=== PATIENT | male | born 1965 | race Caucasian/White ===

== ENCOUNTER 2021-01-08 02:42 | Inpatient (IN) | payer OTHER, SELFPAY ==
--- NOTE | 2021-01-08 01:49 | NURSING ---
This RN received phone call from patients stating [facility] told me that i would be able to see my . This RN attempted to expain to the that [facility] policy for COVID patients is no visitors. seemed upset with this answer. then proceeded to say no one told me he had COVID, they told me he had pneumonia. then also went on to say he tested positive over a week ago and we are both through our quarantine. This RN attempted to explain to the that his diagnosis for admission was COVID PNA. still not pleased with this answer. This RN placed on hold and spoke with delivery driver/supervisor, delivery driver/supervisor suggested to have speak with patient on the phone in his room. Waiting to transfer back to patients room via phone. junior legal secretary aware of current situation.
[2021-01-08 01:50] VITALS: BMI 50.9
[2021-01-08 02:03] VITALS: BP 119/84; PULSE 80; RESP 20; TEMP 37.3; O2SAT 93
--- NOTE | 2021-01-08 02:31 | HP.PCM_ITS ---
HPI - General General Date of Admission: 01/08/21 HPI Narrative AMY RENEE, is a 55 M who presents to the emergency room in [facility] and was asked for transfer to our facility due to COVID-19 infection with hypoxia. Patient was requiring 7 L of nasal cannula to maintain his oxygen saturation greater than 90%. He first was tested for Covid on December 25 and was positive at that time and since then has had continued cough with fever and chills periodically and weakness. He states he was tired of hearing his complained about his coughing at home and came to the emergency room today for evaluation. He has been on 30 mg of prednisone and has given a prescr iption as an outpatient for doxycycline but despite this he has had more difficulty breathing today. Patient denies any chest pain, nausea vomiting or diarrhea. He will be admitted for Covid management. [facility] Medical History (Updated 01/08/21 @ 02:[address] Eliot Ayala MD) Alcohol abuse Allergies Heart murmur Home Medications albuterol sulfate 2 puff INHALATION Q6H PRN PRN 01/08/21 [History Last Taken Unknown] furosemide 20 mg PO DAILY PRN 01/08/21 [History Last Taken Unknown] montelukast 10 mg PO QHS 01/08/21 [History Last Taken 01/06/21] multivitamin 1 tab PO DAILY 01/08/21 [History Last Taken 01/07/21] prednisone 30 mg PO DAILY 01/08/21 [History Last Taken 01/07/21] Allergy/AdvReac Type Severity Reaction Status Date / Time bee venom protein (honey bee) Allergy Anaphylaxis Verified 01/08/21 01:53 procaine [From Novocain] AdvReac Other Verified 01/08/21 01:53 Social History Smoking Status: Never smoker ROS Constitutional Constitutional: Reports fatigue and weakness; Denies chills or fever(s) Eyes Eyes: Denies blurry vision ENT HEENT: Reports nasal congestion; Denies dysphagia Cardiovascular Cardiovascular: Denies chest pain Respiratory/Chest Respiratory/Chest: Reports shortness of breath at rest Gastrointestinal Gastrointestinal: Denies abdominal pain Genitourinary Genitourinary: Denies dysuria Musculoskeletal Musculoskeletal: Denies back pain Integumentary Integumentary: Denies dry skin Neurologic Neurologic: Denies abnormal speech Psychiatric Psychiatric: Denies anxiety Vital Signs Vital Signs Vital Signs: 01/08/21 02:03 Temperature 99.2 F H Temperature Source Oral Pulse Rate 80 Respiratory Rate 20 H Blood Pressure 119/84 H Blood Pressure Mean 95 Blood Pressure Source Monitor Blood Pressure Position Sitting Blood Pressure Location Left Forearm Pulse Ox 93 Oxygen Delivery Method Nasal Cannula Oxygen Flow Rate (L/min) 5 Weight Weight: 418 lb 6.998 oz Body Mass Index (BMI) 50.9 Physical Exam Const oriented x3 and no apparent distress General Appearance: cooperative HEENT head/scalp atraumatic Eyes PERRL Neck supple Lymph Lymphatic: no lymphadenopathy noted Resp normal respiratory effort Auscultation: rhonchi left upper Cardio regular rate, regular rhythm, S1 normal heart sound and S2 normal heart sound GI normal to inspection, nondistended, normoactive bowel sounds GI Narrative: obese Extremity no clubbing, cyanosis or edema Skin General Skin Exam: turgor normal Neuro CN's II-XII intact bilaterally Psych affect normal Assessment & Plan Assessment/Plan (1) COVID-19: PLAN: Plan 1. COVID-19 infection with hypoxia?admit patient to general medical floor with Covid isolation, continue oxygen per routine protocol to maintain saturation greater than 90%. Will initiate dexamethasone steroid therapy and continue to monitor his progress for anticipated discharge in the next day or so with home oxygen if necessary 2. DVT prophylaxis?low molecular weight heparin Charges/Coding Visit Charges Inpatient E&M: 05301 Init Hosp L2
[2021-01-08 03:10] VITALS: O2SAT 93
[2021-01-08 03:54] LABS: BNP,B-Type NATRIURETIC PEPTIDE 16.8 pg/mL (0-100)
[2021-01-08 04:01] LABS: Lactic Acid 0.9 mmol/L (0.4-1.9)
[2021-01-08 04:02] LABS: ALB/GLOB Ratio 0.4 RATIO (0.9-2.4); AST(SGOT) 46 U/L (15-37); Alanine Aminotransfer ALT/SGPT 38 U/L (16-61); Albumin, Serum 2.3 g/dL (3.2-5.0); Alkaline Phosphatase 55 U/L (45-117); Anion Gap 8 (5-15); BUN 13 mg/dL (7-18); BUN/Creat Ratio 17.8 RATIO (10-20); CPK Total, Creatine Kinase 245 U/L (39-308); Calcium,Total 8.4 mg/dL (8.5-10.1); Chloride 100 mmol/L (98-107); Creatinine, Serum 0.73 mg/dL (0.70-1.30); EST Glomerular Filtration Rate 118 mL/min (>60); Est Glom Filt Rate - Afr Amer 143 mL/min (>60); Estimated Creatinine Clearance 142.02 ml/min; Globulin 5.4 g/dL (2.2-4.2); Glucose 127 mg/dL (74-106); LDH 454 U/L (87-241); Potassium 3.8 mmol/L (3.5-5.1); Protein, Total 7.7 g/dL (6.4-8.2); Sodium Level 133 mmol/L (136-145); Troponin-I HS 9 pg/mL (3.0-78.0)
[2021-01-08 04:03] LABS: Procalcitonin 0.13 ng/mL (0.00-0.09)
[2021-01-08 04:04] LABS: International Normalized Ratio 1.2; Prothrombin Time (Protime)PT. 14.7 SECONDS (11.7-14.9)
[2021-01-08 04:54] LABS: D-Dimer Quantitative (DVT/PE) 3.63 FEU/ug/m (0.27-0.49)
[2021-01-08 05:12] LABS: Fibrinogen > 900 mg/dl (203-444)
[2021-01-08 08:24] VITALS: O2SAT 92
[2021-01-08 10:13] VITALS: BP 147/68; PULSE 80; RESP 16; TEMP 36.7; O2SAT 94
[2021-01-08] MEDS: dexAMETHasone 2 MG TABLET 6 MG PO (10:24)
[2021-01-08] MEDS: Enoxaparin 40 MG/0.4 ML Syringe SC ×2 (10:24→20:53)
--- NOTE | 2021-01-08 12:10 | CASEMGMT ---
RN ROBBIE Face to Face with patient for initial transition planning/care coordination assessment. RN CM introduced self and role at [facility]. Patient lying in bed, alert and oriented. Patient willing to participate in assessment and is able to answer all questions appropriately. Care providers, pharmacy, and demographics verified. Patient wishes to discharge home, denies need for home health at this time. Patient states he has no further needs or concerns at this time. CM to follow for discharge planning needs that may arise. PCP: Krista Specialists: None Preferred Pharmacy: [facility] Insurance: MMO Prescription Benefit: yes Living Will/HPOA: none LNOK: Living Arrangements: Patient lives with in a single story home iwth 4 steps and railing to enter. Patient states he is independent at home. Patient states was sick as well but is out of isolation. Transportation: self/ DME/HHC: Patient has raised toilet seat. Patient has no previous HHC. Patient was provided a list of DME providers consistent with the patient?s preferred geographic region, medical needs, and insurance network. The patient?s preferred provider is Ivan. Will monitor for home oxygen Patient states his covid testing was completed at [facility]. Disposition Plan: Patient to discharge home with family support and follow-up plans in place. Maryann MERRILL, RN, CM
--- NOTE | 2021-01-08 12:19 | PN.HOSP_ITS ---
Subjective Subjective Patient michael and examined. He has no active complaints and feels well. REview of systems is otherwise negative. Labs and vitals reviewed. Home meds reviewed and reconciled. Objective Data Objective Data Vital Signs: Vital Signs Temp Pulse Resp BP Pulse Ox 98.1 F 80 16 147/68 H 94 01/08/21 10:13 01/08/21 10:13 01/08/21 10:13 01/08/21 10:13 01/08/21 10:13 Oxygen Flow Rate (L/min) 5 Oxygen Delivery Method Nasal Cannula Weight: 418 lb 6.998 oz Body Mass Index (BMI) 50.9 Lab / Micro Data Result Diagrams: 01/08/21 03:26 01/08/21 03:26 Labs: Laboratory Results - last 24 hr 01/08/21 03:26: Sodium 133 L, Potassium 3.8, Chloride 100, Carbon Dioxide 25.0, Anion Gap 8, BUN 13, Creatinine 0.73, Estim Creat Clear Calc 142.02, Est GFR (MDRD) Af Amer 143, Est GFR (MDRD) Non-Af 118, BUN/Creatinine Ratio 17.8, Glucose 127 H, Calcium 8.4 L, Total Bilirubin 0.90, AST 46 H, ALT 38, Alkaline Phosphatase 55, Lactate Dehydrogenase 454 H, Total Creatine Kinase 245, Troponin I High Sens 9, C-React Prot Ext Range 209.00 H, Total Protein 7.7, Albumin 2.3 L , Globulin 5.4 H, Albumin/Globulin Ratio 0.4 L 01/08/21 03:26: B-Natriuretic Peptide 16.8 01/08/21 03:26: PT 14.7, INR 1.2, Fibrinogen > 900 H, D-Dimer Quant (PE/DVT) 3.63 H* 01/08/21 03:26: Lactic Acid 0.9 01/08/21 03:26: Procalcitonin 0.13 H Physical Exam Const alert, oriented x3 and no apparent distress Exam Limitations: no limitations HEENT head/scalp atraumatic and moist oral mucous membranes Head and Scalp: normocephalic Eyes PERRL, EOMs intact bilaterally and conjunctivae normal Neck no lymphadenopathy Resp Resp Narrative: diminished breath sounds bibasally, no wheezes or crackles. On 5L of oxygen. Cardio regular rate, regular rhythm, S1 normal heart sound, S2 normal heart sound and no murmurs GI normal to inspection, nondistended, normoactive bowel sounds, soft to palpation, non-tender and non-distended Extremity normal to inspection, full ROM and no clubbing, cyanosis or edema Peripheral Pulses: Yes pulses 2+ throughout Skin no rashes or lesions noted Neuro oriented x3, CN's II-XII intact bilaterally and moves all extremities Sensorium / Orientation: awake and alert Psych affect normal Assessment & Plan Assessment/Plan (1) COVID-19: (2) Acute respiratory failure with hypoxia: PLAN: #Acute hypoxic respiratory failure due to COVID 19 pneumonia * patient now on 5L of oxygen * breathing treatment with bronchodilators * titrate oxygen to maintain sats >90% * on dexamethasone 6mg daily. * he first tested positive for COVID on December 25 2020, so he is out of the window for remdesivir. #Elevated D dimer * D dimer was >3. * CTA was done at [facility] prior to transfer, which was negative. #DVT prophylaxis: will switch from lovenox 40mg daily to 40mg bid due to el evated D dimer 17:16 I spoke to patient's Leonora Alvarez on the phone today after she requested that I call her. Patient's wanted to know about the plan of treatment and question why we are managing him for COVID-19 infection when he had pneumonia. Patient's said that patient had completed his 10 days of quarantine after he was first diagnosed with Covid on December 25, 2020, and so she did not understand why patient was being managed for Covid. I explained to patient's that patient had Covid pneumonia and the CTA of the chest he had done at [facility] prior to transfer showed bilateral opacities consistent with COVID-19 pneumonia. She asked why patient was not on antibiotics and also asked why patient was not receiving remdesivir. I again explained to her that patient's onset of symptoms was back in December, and was over 3 weeks since he started having symptoms so he was past the timeframe for remdesivir. I also explained to her that patient was not febrile apart from 1 mild record of fever of 99.2 Fahrenheit and also did not have any elevated white cell count and so there was no indication for antibiotics now as I do not see any evidence of superimposed pneumonia; also, COVID pneumonia was a viral pneumonia and antibiotics played no role. Patient's also inquired about why she was not being allowed to visit him as she was told at [facility] that she could visit him at [facility]. I explained to his that the rules in [facility] as at now were that family members could not visit COVID-19 patients and this was applied without any discrimination in order to limit the spread of COVID-19 infection. She could therefore not be allowed to visit her since he was being managed for acute hypoxic respiratory failure due to COVID-19 infection. Patient's wanted to know all the labs that he had had done and wanted me to read out every single lab result that he had had. I did advise patient's of his CBC and BMP results. She also wanted to know how long he was going to stay in the hospital and I again counseled her that I could not predict how long he could be in the hospital for as the cause of Covid was quite unpredictable especially in unvaccinated patients. Patient's was counseled that she could call the floor the patient was to get any further updates she wished for. Charges/Coding Visit Charges Inpatient E&M: 95149 [facility] Hosp L3
[2021-01-08 12:47] LABS: Absolute Lymphocyte Count 0.58 X10^3/uL (0.83-4.51); Absolute Neutrophil Count 8.6 X10^3/uL (2.0-7.7); Basophil# 0.04 X10^3/uL; Basophil% 0.4 % (0-1); Hematocrit 37.8 % (40-54); Hemoglobin 12.4 g/dL (13.0-16.5); Lymphocyte # 0.58 X10^3/ul (0.83-4.51); Lymphocyte % 5.9 % (19-41); Mean Corp Hgb Conc 32.8 g/dL (32-36); Mean Corpuscular Hgb 30.2 pg (27.0-32.0); Mean Platelet Vol. 10.9 fl (6.2-12.0); Monocyte# 0.47 X10^3/uL; Monocyte% 4.8 % (0-10); NRBC Flagged by Analyzer 0 % (0-5); Neutrophil # 8.57 X10^3/uL (2.7-7.7); POSITIVE DIFFERENTIAL YES; Platelet Count 272 K/mm3 (150-450); RBC Distribution Width CV 14.1 % (11.6-14.6); RBC Distribution Width SD 47.6 fl (35.1-43.9); Red Blood Count 4.11 M/mm3 (4.6-6.2); White Blood Count 9.9 K/mm3 (4.4-11.0)
[2021-01-08 12:51] LABS: Differential Indicated SCAN CRITERIA MET
[2021-01-08 13:00] LABS: Magnesium 2.1 mg/dL (1.6-2.6)
[2021-01-08 13:13] LABS: Platelet Estimate ADEQUATE (ADEQ); Red Cell Morphology NORM C+C NORMAL (NORM C&C)
[2021-01-08 15:20] VITALS: BP 123/83; PULSE 87; RESP 18; TEMP 36.6; O2SAT 95
[2021-01-08] MEDS: Montelukast 10 MG Tablet PO (20:54)
[2021-01-08 21:04] VITALS: BP 135/65; PULSE 81; RESP 18; TEMP 36.8; O2SAT 92
[2021-01-09] VITALS (10 sets, daily range): BP systolic 114–153; BP diastolic 53–90; PULSE 65–93; RESP 18–22; TEMP 36.3–36.7; O2SAT 92–96
[2021-01-09] MEDS: Enoxaparin 40 MG/0.4 ML Syringe SC ×2 (09:09→20:08)
[2021-01-09] MEDS: dexAMETHasone 2 MG TABLET 6 MG PO (09:09)
[2021-01-09 09:10] LABS: Absolute Lymphocyte Count 0.96 X10^3/uL (0.83-4.51); Absolute Neutrophil Count 9.4 X10^3/uL (2.0-7.7); Basophil# 0.02 X10^3/uL; Basophil% 0.2 % (0-1); Hematocrit 37.8 % (40-54); Hemoglobin 12.4 g/dL (13.0-16.5); Lymphocyte # 0.96 X10^3/ul (0.83-4.51); Lymphocyte % 8.4 % (19-41); Mean Corp Hgb Conc 32.8 g/dL (32-36); Mean Corpuscular Hgb 30.1 pg (27.0-32.0); Mean Corpuscular Volume 91.7 fL (80-94); Mean Platelet Vol. 10.4 fl (6.2-12.0); Monocyte# 0.75 X10^3/uL; Monocyte% 6.6 % (0-10); NRBC Flagged by Analyzer 0 % (0-5); Neutrophil # 9.44 X10^3/uL (2.7-7.7); Neutrophil % 82.8 % (47-70); Platelet Count 376 K/mm3 (150-450); RBC Distribution Width CV 13.7 % (11.6-14.6); RBC Distribution Width SD 46.7 fl (35.1-43.9); Red Blood Count 4.12 M/mm3 (4.6-6.2); White Blood Count 11.4 K/mm3 (4.4-11.0)
[2021-01-09 09:27] LABS: ALB/GLOB Ratio 0.5 RATIO (0.9-2.4); AST(SGOT) 40 U/L (15-37); Alanine Aminotransfer ALT/SGPT 50 U/L (16-61); Albumin, Serum 2.4 g/dL (3.2-5.0); Alkaline Phosphatase 59 U/L (45-117); Anion Gap 6 (5-15); BUN 19 mg/dL (7-18); Calcium,Total 8.7 mg/dL (8.5-10.1); Chloride 104 mmol/L (98-107); Creatinine, Serum 0.76 mg/dL (0.70-1.30); EST Glomerular Filtration Rate 113 mL/min (>60); Est Glom Filt Rate - Afr Amer 137 mL/min (>60); Estimated Creatinine Clearance 136.42 ml/min; Globulin 4.9 g/dL (2.2-4.2); Glucose 149 mg/dL (74-106); Potassium 4.2 mmol/L (3.5-5.1); Protein, Total 7.3 g/dL (6.4-8.2); Sodium Level 138 mmol/L (136-145)
--- NOTE | 2021-01-09 10:27 | NURSING ---
Anamaria called me with concerns. States patient wants to take a shower but no one will let him. Explained to her that he is still on 6 l of oxygen and may not be able to tolerate all that activity. We will keep evaluating him and let him shower as soon as we feel he is safe and can tolerate. Asking questions about why he is in precautions and she cannot visit. Explained to her that is is still symptomatic and we need to make sure that we do not spread COVID to staff or other patients. He needs to remain in precautions for now. That includes no visitors. We have had that rule in place of no visitors for COVID patients since the pandemic started and need to continue to follow guidelines set by our infection control committee. She was upset that Jesús told her she could visit since he has pneumonia- I appologized that she got incorrect information. It is not because of pneumonia- it is the COVID that she cannot visit. We cannot change that just because someone told her wrong. aSking a lot of questions about COVID- stating it is past 10 days so he doesn't have covid. attempted to explain that he still does and we need to treat as such. doesn't not seem to agree. STated that she can do what we are doing at home. I explained that we do not send patients home on 6l of oxygen. That is a lot of oxygen need to go home. Pulmonary is consulted to see patient today and she is aware. Also expressed being upset with dr. naqvi. feels she is not keeping her informed of information or the plan. I will discuss with dr. Chung but she has detailed notes in the computer of discussions she has had with the . Will notify patient advocate of requesting a call. did state she got a nice report from the patients nurse this am and other than the shower, there were not nursing needs at this time.
--- NOTE | 2021-01-09 10:50 | NURSING ---
Talked with Dr. Chung. She has placed an consult for Dr. Saucedo to see patient. Will evaluate if patient can tolerate activity enough to go home with 0xygen today.
--- NOTE | 2021-01-09 11:40 | NURSING ---
Discussed with primary RN options for a shower. Nurse states she explained to and patient earlier when was on the phone that she did not feel the patient could tolerate a shower. Dropping into high 80% pulse ox at rest on 6l. Will continue to evaluate but did not feel that it was appropriate for patient to attempt a shower at this time.
--- NOTE | 2021-01-09 12:12 | CON.PCM.CC_ITS ---
Assessment & Plan Assessment/Plan (1) Acute respiratory failure with hypoxia: (2) COVID-19: PLAN: RECOMMENDATIONS: 1. Wean supplemental oxygen to maintain saturations at or above 90%. 2. Continue Decadron to complete 10-day treatment course. 3. Check BNP. 4. Encourage incentive spirometer use and mobilize patient as tolerated. IMPRESSIONS: 1. Acute hypoxemic respiratory failure secondary to COVID-19 pneumonia The patient was transferred here from an outside facility due to shortness of breath and hypoxemia. The patient initially presented with 2 weeks of progressive dyspnea, having tested positive for coronavirus on December 25. Therefore, he was outside of the window for administration of remdesivir. Agree with continuing Decadron as ordered to complete 10-day treatment course. D- dimer was elevated at presentation. However, CTA chest at the outside hospital did not demonstrate evidence for PE. Therefore, continue Lovenox twice daily. In addition, will check BNP. Continue to wean supplemental oxygen as tolerated to maintain saturations at or above 90%. Encourage incentive spirometer use and mobilize patient as tolerated. This note was generated with [employer] dictation software. It may contain incorrect words, spelling, and punctuation that were not noted in checking the note before signing. HPI Consult Data Date of Consult: 01/10/21 HPI Narrative Reason for Consultation: Acute hypoxemic respiratory failure secondary to COVID- 19 pneumonia HPI Narrative: The patient is a 55-year-old male, with a history as outlined below, who presented as a transfer of care from [facility] on January 08 with shortness of breath and hypoxemia. The patient reported the presence of symptoms for approximately 2 weeks duration. He does report sick contact exposure from a number of family members. He is unvaccinated. The patient first tested positive for Covid on December 25. 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 D-dimer was elevated to 3.63 on January 08. Procalcitonin was noted to be 0.13. The patient continues to require 6 L/min of oxygen. He is being maintained on Decad kindra and Lovenox twice daily. [facility] Medical History (Updated 01/08/21 @ 12:[address] Roxana Chung MD) Alcohol abuse Allergies Heart murmur Home Medications albuterol sulfate 2 puff INHALATION Q6H PRN PRN 01/08/21 [History Last Taken Unknown] furosemide 20 mg PO DAILY PRN 01/08/21 [History Last Taken Unknown] montelukast 10 mg PO QHS 01/08/21 [History Last Taken 01/06/21] multivitamin 1 tab PO DAILY 01/08/21 [History Last Taken 01/07/21] prednisone 30 mg PO DAILY 01/08/21 [History Last Taken 01/07/21] Allergy/AdvReac Type Severity Reaction Status Date / Time bee venom protein (honey bee) Allergy Anaphylaxis Verified 01/08/21 01:53 procaine [From Novocain] AdvReac Other Verified 01/08/21 01:53 Social History Smoking Status: Never smoker ROS Constitutional Constitutional: Reports fatigue and malaise Eyes Eyes: Denies blurry vision or change in vision ENT HEENT: Denies headache(s) or loss taste/smell Cardiovascular Cardiovascular: Reports dyspnea Respiratory/Chest Respiratory/Chest: Reports cough and dyspnea; Denies chest tightness Gastrointestinal Gastrointestinal: Denies abdominal pain, diarrhea, nausea or vomiting Genitourinary Genitourinary: Denies difficulty urinating Musculoskeletal Musculoskeletal: Denies arthralgias, back pain or joint pain Integumentary Integumentary: Denies lesions, rash or skin ulcer Neurologic Neurologic: Denies abnormal gait or abnormal speech Psychiatric Psychiatric: Denies anxiety or depression Endocrine Endocrinology: Reports fatigue Hematologic/Lymphatic Hematologic/Lymphatic: Denies easy bleeding or easy bruising Physical Exam Const alert, oriented x3 and no apparent distress Constitutional Narrative: Sitting in bedside recliner. General Appearance: cooperative Nutritional Appearance: morbidly obese HEENT normocephalic, head/scalp atraumatic and moist oral mucous membranes Eyes PERRL, EOMs intact bilaterally and conjunctivae normal Neck supple General: trachea midline Resp Auscultation: diminished lung sounds; Negative for rales, rhonchi or wheezes Cardio regular rate and regular rhythm GI normal to inspection, nondistended, normoactive bowel sounds Extremity no clubbing, cyanosis or edema Skin no rashes or lesions noted Neuro oriented x3, moves all extremities and no focal motor deficits Psych cooperative and affect normal Lab / Micro Data Result Diagrams: 01/10/21 06:16 01/09/21 09:04 Labs: Laboratory Results - last 24 hr 01/08/21 03:26: Magnesium 2.1 01/08/21 03:26: WBC 9.9, RBC 4.11 L, Hgb 12.4 L, Hct 37.8 L, MCV 92.0, MCH 30.2, MCHC 32.8, RDW Std Deviation 47.6 H, RDW Coeff of Mike 14.1, Plt Count 272, MPV 10.9, Immature Gran % (Auto) 1.900 H, Neut % (Auto) 87.0 H, Lymph % (Auto) 5.9 L , [place] % (Auto) 4.8, Eos % (Auto) 0.0, Baso % (Auto) 0.4, Absolute Neuts (auto) 8.6 H, Absolute Lymphs (auto) 0.58 L, Nucleated RBC % 0, Differential Comment , Platelet Estimate ADEQUATE, RBC Morphology NORM C+C 01/09/21 09:04: WBC 11.4 H, RBC 4.12 L, Hgb 12.4 L, Hct 37.8 L, MCV 91.7, MCH 30.1, MCHC 32.8, RDW Std Deviation 46.7 H, RDW Coeff of Mike 13.7, Plt Count 376, MPV 10.4, Immature Gran % (Auto) 2.000 H, Neut % (Auto) 82.8 H, Lymph % (Auto) 8.4 L, [place] % (Auto) 6.6, Eos % (Auto) 0.0, Baso % (Auto) 0.2, Absolute Neuts (auto) 9.4 H, Absolute Lymphs (auto) 0.96, Nucleated RBC % 0 01/09/21 09:04: Sodium 138, Potassium 4.2, Chloride 104, Carbon Dioxide 28.0, Anion Gap 6, BUN 19 H, Creatinine 0.76, Estim Creat Clear Calc 136.42, Est GFR (MDRD) Af Amer 137, Est GFR (MDRD) Non-Af 113, BUN/Creatinine Ratio 25.0 H, Glucose 149 H, Calcium 8.7, Total Bilirubin 0.60, AST 40 H, ALT 50, Alkaline Phosphatase 59, Total Protein 7.3, Albumin 2.4 L, Globulin 4.9 H, Albumin/Globulin Ratio 0.5 L Charges/Coding Visit Charges Inpatient E&M: 36981 Init Hosp L3
--- NOTE | 2021-01-09 16:29 | PN.HOSP_ITS ---
Subjective Subjective Patient seen and examined. He said he felt well and wanted to go home. He felt his shortness of breath or improved. Patient was however still on 6 L of oxygen by nasal cannula and saturating in the high 80s to low 90s. Review of systems otherwise negative. I informed patient that I spoke to his yesterday and expressed to him that his did not believe that he had Covid but rather thought he had pneumonia. Patient said I know. was on the phone during review and wanted to know whether patient could have a bath. I informed her that because of patient's tenuous oxygen levels, it was advisable that he should not exert himself as that could cause him to be hypoxic. We will therefore hold off on about for now. Patient and wanted to know why patient was not on vitamin C, zinc and Quercetin. I informed patient and his that these medications were not part of the protocol for treatment for Covid in [facility]. Patient's was quite upset that patient was not receiving these medications. Review of systems otherwise negative. I informed patient and his that pulmonology has been consulted in light of patient still requiring up to 6 L of oxygen. Objective Data Objective Data Vital Signs: Vital Signs Temp Pulse Resp BP Pulse Ox 97.4 F L 71 22 H 149/78 H 92 01/09/21 14:26 01/09/21 14:26 01/09/21 14:26 01/09/21 14:26 01/09/21 16:01 Oxygen Flow Rate (L/min) 6 Oxygen Delivery Method Nasal Cannula Weight: 418 lb 6.998 oz Body Mass Index (BMI) 50.9 Lab / Micro Data Result Diagrams: 01/09/21 09:04 01/09/21 09:04 Labs: Laboratory Results - last 24 hr 01/09/21 09:04: WBC 11.4 H, RBC 4.12 L, Hgb 12.4 L, Hct 37.8 L, MCV 91.7, MCH 30.1, MCHC 32.8, RDW Std Deviation 46.7 H, RDW Coeff of Mike 13.7, Plt Count 376, MPV 10.4, Immature Gran % (Auto) 2.000 H, Neut % (Auto) 82.8 H, Lymph % (Auto) 8.4 L, [place] % (Auto) 6.6, Eos % (Auto) 0.0, Baso % (Auto) 0.2, Absolute Neuts (auto) 9.4 H, Absolute Lymphs (auto) 0.96, Nucleated RBC % 0 01/09/21 09:04: Sodium 138, Potassium 4.2, Chloride 104, Carbon Dioxide 28.0, Anion Gap 6, BUN 19 H, Creatinine 0.76, Estim Creat Clear Calc 136.42, Est GFR (MDRD) Af Amer 137, Est GFR (MDRD) Non-Af 113, BUN/Creatinine Ratio 25.0 H, Glucose 149 H, Calcium 8.7, Total Bilirubin 0.60, AST 40 H, ALT 50, Alkaline Phosphatase 59, Total Protein 7.3, Albumin 2.4 L, Globulin 4.9 H, Albumin/Globulin Ratio 0.5 L 01/09/21 09:04: B-Natriuretic Peptide 22.0 Physical Exam Const alert, oriented x3 and no apparent distress General Appearance: cooperative Exam Limitations: no limitations HEENT head/scalp atraumatic and moist oral mucous membranes Head and Scalp: normocephalic Eyes PERRL, EOMs intact bilaterally and conjunctivae normal Neck no lymphadenopathy and supple Lymph Lymphatic: no lymphadenopathy noted Resp Resp Narrative: diminished breath sounds bibasally, no wheezes or crackles. On 6L of oxygen. Auscultation: rhonchi left upper Cardio regular rate, regular rhythm, S1 normal heart sound, S2 normal heart sound and no murmurs GI normal to inspection, nondistended, normoactive bowel sounds, soft to palpation, non-tender and non-distended GI Narrative: obese Extremity normal to inspection, full ROM and no clubbing, cyanosis or edema Peripheral Pulses: Yes pulses 2+ throughout Skin no rashes or lesions noted General Skin Exam: turgor normal Neuro oriented x3, CN's II-XII intact bilaterally and moves all extremities Sensorium / Orientation: awake and alert Psych affect normal Assessment & Plan Assessment/Plan (1) COVID-19: (2) Acute respiratory failure with hypoxia: PLAN: #Acute hypoxic respiratory failure due to COVID 19 pneumonia * patient now on 6L of oxygen * breathing treatment with bronchodilators * titrate oxygen to maintain sats >90% * on dexamethasone 6mg daily. * he first tested positive for COVID on December 25 2020, so he is out of the window for remdesivir. * BNP not elevated * pulmonology consulted * #Elevated D dimer * D dimer was >3. * CTA was done at [facility] prior to transfer, which was negative. #DVT prophylaxis: on lovenox 40mg bid. Charges/Coding Visit Charges Inpatient E&M: 31861 Subs Hosp L2
[2021-01-09] MEDS: Montelukast 10 MG Tablet PO (20:07)
[2021-01-10] VITALS (7 sets, daily range): BP systolic 111–134; BP diastolic 38–72; PULSE 51–65; RESP 18–20; TEMP 36.5–36.8; O2SAT 86–97
[2021-01-10 06:55] LABS: Absolute Lymphocyte Count 1.16 X10^3/uL (0.83-4.51); Absolute Neutrophil Count 8.8 X10^3/uL (2.0-7.7); Basophil# 0.02 X10^3/uL; Basophil% 0.2 % (0-1); Hematocrit 37.1 % (40-54); Hemoglobin 11.9 g/dL (13.0-16.5); Lymphocyte # 1.16 X10^3/ul (0.83-4.51); Lymphocyte % 10.4 % (19-41); Mean Corp Hgb Conc 32.1 g/dL (32-36); Mean Corpuscular Hgb 30.1 pg (27.0-32.0); Mean Corpuscular Volume 93.7 fL (80-94); Mean Platelet Vol. 10.5 fl (6.2-12.0); Monocyte# 1.01 X10^3/uL; NRBC Flagged by Analyzer 0 % (0-5); Neutrophil # 8.75 X10^3/uL (2.7-7.7); Neutrophil % 78.2 % (47-70); Platelet Count 355 K/mm3 (150-450); RBC Distribution Width CV 13.6 % (11.6-14.6); RBC Distribution Width SD 47.3 fl (35.1-43.9); Red Blood Count 3.96 M/mm3 (4.6-6.2); White Blood Count 11.2 K/mm3 (4.4-11.0)
[2021-01-10 07:20] LABS: Anion Gap 7 (5-15); BUN 20 mg/dL (7-18); BUN/Creat Ratio 26.7 RATIO (10-20); Calcium,Total 8.5 mg/dL (8.5-10.1); Chloride 104 mmol/L (98-107); Creatinine, Serum 0.75 mg/dL (0.70-1.30); EST Glomerular Filtration Rate 115 mL/min (>60); Est Glom Filt Rate - Afr Amer 140 mL/min (>60); Estimated Creatinine Clearance 138.24 ml/min; Glucose 126 mg/dL (74-106); Potassium 4.1 mmol/L (3.5-5.1); Sodium Level 137 mmol/L (136-145)
[2021-01-10] MEDS: dexAMETHasone 2 MG TABLET 6 MG PO (09:29)
[2021-01-10] MEDS: Enoxaparin 40 MG/0.4 ML Syringe SC (09:30)
--- NOTE | 2021-01-10 09:41 | NURSING ---
o2 at 4 l nc at rest 94%, dropped to 88% after walking in room for 5 min at 4 l nc.
--- NOTE | 2021-01-10 10:16 | PCM.PN.INT ---
Assessment & Plan Assessment/Plan (1) Acute respiratory failure with hypoxia: (2) COVID-19: PLAN: RECOMMENDATIONS: 1. Wean supplemental oxygen to maintain saturations at or above 90%. 2. Continue Decadron to complete 10-day treatment course. 3. Encourage incentive spirometer use and mobilize patient as tolerated. 4. Perform walking oximetry study prior to consideration for discharge home. 5. The patient can be discharged once he is able to ambulate on 6 L/min or less of supplemental oxygen. IMPRESSIONS: 1. Acute hypoxemic respiratory failure secondary to COVID-19 pneumonia The patient was transferred here from an outside facility due to shortness of breath and hypoxemia. The patient initially presented with 2 weeks of progressive dyspnea, having tested positive for coronavirus on December 25. Therefore, he was outside of the window for administration of remdesivir. Agree with continuing Decadron as ordered to complete 10-day treatment course. D-dimer was elevated at presentation. However, CTA chest at the outside hospital did not demonstrate evidence for PE. Therefore, continue Lovenox twice daily. Continue to wean supplemental oxygen as tolerated to maintain saturations at or above 90%. Encourage incentive spirometer use and mobilize patient as tolerated. This note was generated with [employer] dictation software. It may contain incorrect words, spelling, and punctuation that were not noted in checking the note before signing. Subjective Subjective The patient was seen and examined at the bedside this morning. Events from the last 24 hours have been reviewed. The patient is currently afebrile, hemodynamically stable and maintaining appropriate oxygen saturations on 4 L/min via nasal cannula. The patient remains on daily Decadron therapy and twice daily Lovenox. He seems anxious to be discharged home. Objective Data Objective Data The patient's most recent lab work, culture data and imaging studies have all been personally reviewed. Vital Signs: Vital Signs Temp Pulse Resp BP Pulse Ox 97.7 F L 53 L 18 111/50 L 97 01/10/21 07:42 01/10/21 07:42 01/10/21 07:42 01/10/21 07:42 01/10/21 07:50 Oxygen Flow Rate (L/min) 4 Oxygen Delivery Method Nasal Cannula Weight: 189.8 kg Body Mass Index (BMI) 50.9 Intake & Output: Intake and Output for Last 24 Hours 09/11/2101/09/21 01/10/21 23:59 23:59 23:59 Intake Total 1000 / 1000 Balance 1000 / 1000 Lab / Micro Data Attestation: I reviewed the patient's lab results. Result Diagrams: 01/10/21 06:16 01/10/21 06:16 Labs: Laboratory Results - last 24 hr 01/09/21 09:04: B-Natriuretic Peptide 22.0 01/10/21 06:16: WBC 11.2 H, RBC 3.96 L, Hgb 11.9 L, Hct 37.1 L, MCV 93.7, MCH 30.1, MCHC 32.1, RDW Std Deviation 47.3 H, RDW Coeff of Mike 13.6, Plt Count 355, MPV 10.5, Immature Gran % (Auto) 2.200 H, Neut % (Auto) 78.2 H, Lymph % (Auto) 10.4 L, [place] % (Auto) 9.0, Eos % (Auto) 0.0, Baso % (Auto) 0.2, Absolute Neuts (auto) 8.8 H, Absolute Lymphs (auto) 1.16, Nucleated RBC % 0 01/10/21 06:16: Sodium 137, Potassium 4.1, Chloride 104, Carbon Dioxide 26.0, Anion Gap 7, BUN 20 H, Creatinine 0.75, Estim Creat Clear Calc 138.24, Est GFR (MDRD) Af Amer 140, Est GFR (MDRD) Non-Af 115, BUN/Creatinine Ratio 26.7 H, Glucose 126 H, Calcium 8.5 Physical Exam Const alert, oriented x3 and no apparent distress Constitutional Narrative: Sitting in bedside recliner. General Appearance: cooperative Nutritional Appearance: morbidly obese HEENT normocephalic, head/scalp atraumatic and moist oral mucous membranes Eyes PERRL, EOMs intact bilaterally and conjunctivae normal Neck supple General: trachea midline Resp Auscultation: diminished lung sounds; Negative for rales, rhonchi or wheezes Cardio regular rate and regular rhythm GI normal to inspection, nondistended, normoactive bowel sounds Extremity no clubbing, cyanosis or edema Skin no rashes or lesions noted Neuro oriented x3, moves all extremities and no focal motor deficits Psych cooperative and affect normal Charges/Coding Visit Charges Inpatient E&M: 83710 Subs Hosp L2
--- NOTE | 2021-01-10 10:34 | DS.PCM_ITS ---
Providers Date of Admission: 01/08/21 Primary Care Physician: Michelle Velasco, FINANCIAL SALES PROFESSIONAL-C Consultations 01/09/21 07:46 Consult: Laboratory Immunologist / Pulmonary Medicine Routine Consulting Provider: Xavier Saucedo Reason for Consult: acute hypoxic respiratory failure due to COVID 19 pneumonia EMERGENT Consult: No MD Notified: Yes Date Notified: 01/09/21 Time Notified: 07:47 Method of Notification: Text Reason For Visit: COVID 19 WITH HYPOXIA Diagnosis Discharge Diagnosis (1) Acute respiratory failure with hypoxia: Status: Acute Code(s): J96.01 - Acute respiratory failure with hypoxia (2) COVID-19: Status: Acute Code(s): U07.1 - COVID-19 Medications at Discharge Home Medications albuterol sulfate 2 puff INHALATION Q6H PRN PRN 01/08/21 furosemide 20 mg PO DAILY PRN 01/08/21 montelukast 10 mg PO QHS 01/08/21 multivitamin 1 tab PO DAILY 01/08/21 apixaban [Eliquis] 2.5 mg PO BID #28 tab 01/10/21 dexamethasone [Decadron] 6 mg PO DAILY #8 tab 01/10/21 Hospital Course Operations None Procedures None Summary of Care Provided Minutes Spent on Discharge: 45 Hospital Course: Patient is a 5-year-old male with a past medical history as outlined was admitted as a transfer from [facility] on January 08 with a complaint of shortness of breath and hypoxemia. Patient tested positive for Covid on December 25, 2020 and said his shortness of breath had been going on for about 2 weeks prior to admission. Patient was unvaccinated. He had an associated cough but denied any chest pain, palpitations, dizziness, naus ea vomiting. At [facility], he D-dimer was elevated at 3.63 on January 08 and a CTA of the chest done that was negative for any evidence of PE. He was admitted to be managed for acute hypoxic respiratory failure due to COVID-19 infection. He was placed on Decadron. He was started on remdesivir as he was too far out from when he was diagnosed. He was also placed on Lovenox 40 mg twice daily for DVT prophylaxis in light of his elevated D-dimer. Patient shortness of breath gradually improved and his oxygen requirements went down to 4 L of oxygen. He also received some Lasix. On day of discharge, he had a walking pulse ox which showed that he qualified for 4 L of oxygen with ambul ation. He was discharged home on 01/10/2021 and is to follow-up with his primary care doctor in 1 to 2 weeks. Patient seen and examined prior to discharge. He had no complaints and felt well. Review of systems otherwise negative. Labs and vitals reviewed. Home medication reviewed and reconciled. He was discharged on Eliquis 5mg mg twice daily for 2 weeks for thromboprophylaxis as well as decadron 6mg daily x 8 days to complete a 10 day course. Physical Exam Const alert, oriented x3 and no apparent distress General Appearance: cooperative Exam Limitations: no limitations Nutritional Appearance: morbidly obese HEENT normocephalic, head/scalp atraumatic and moist oral mucous membranes Eyes PERRL, EOMs intact bilaterally and conjunctivae normal Neck no lymphadenopathy and supple Lymph Lymphatic: no lymphadenopathy noted Resp Resp Narrative: diminished breath sounds bibasally, no wheezes or crackles. On 4L of oxygen. Auscultation: rhonchi left upper Cardio regular rate, regular rhythm, S1 normal heart sound, S2 normal heart sound and no murmurs GI normal to inspection, nondistended, normoactive bowel sounds, soft to palpation, non-tender and non-distended GI Narrative: obese Extremity normal to inspection, full ROM and no clubbing, cyanosis or edema Skin no rashes or lesions noted General Skin Exam: turgor normal Neuro oriented x3, CN's II-XII intact bilaterally and moves all extremities Sensorium / Orientation: awake and alert Psych affect normal Weight / BMI Weight Weight: 418 lb 6.998 oz Body Mass Index (BMI) 50.9 ABG / Lab / Microbiology Data Result Diagrams: 01/10/21 06:16 01/10/21 06:16 Laboratory: Laboratory Results - last 24 hr 01/09/21 09:04: B-Natriuretic Peptide 22.0 01/10/21 06:16: WBC 11.2 H, RBC 3.96 L, Hgb 11.9 L, Hct 37.1 L, MCV 93.7, MCH 30.1, MCHC 32.1, RDW Std Deviation 47.3 H, RDW Coeff of Mike 13.6, Plt Count 355, MPV 10.5, Immature Gran % (Auto) 2.200 H, Neut % (Auto) 78.2 H, Lymph % (Auto) 10.4 L, [place] % (Auto) 9.0, Eos % (Auto) 0.0, Baso % (Auto) 0.2, Absolute Neuts (auto) 8.8 H, Absolute Lymphs (auto) 1.16, Nucleated RBC % 0 01/10/21 06:16: Sodium 137, Potassium 4.1, Chloride 104, Carbon Dioxide 26.0, Anion Gap 7, BUN 20 H, Creatinine 0.75, Estim Creat Clear Calc 138.24, Est GFR (MDRD) Af Amer 140, Est GFR (MDRD) Non-Af 115, BUN/Creatinine Ratio 26.7 H, Glucose 126 H, Calcium 8.5 D/C Instructions Discharge Diet: Low fat / Low cholesterol Discharge Activity: Return to Normal Activity Weight Bearing Status: Weight bearing as tolerated Call your doctor if you observe: Fever of 101 or Higher, Shortness of breath, Dizziness, Swelling in the ankles, Chest pain and Increased palpitations (irreg ular heartbeat) Meaningful Use Info Meaningful Use Diagnoses (Choose all that apply): None applicable Discharge Plan Admission Admit Date/Time: 01/08/21 02:42 Primary Reason for Your Visit: acute hypoxic respiratory failure due to COVID 19 infection Attending Provider: Roxana Chung Primary Care Provider: Michelle Velasco Consulting Providers: Xavier Saucedo Instructions Patient Instructions: Coronavirus Disease 2019 (COVID-19): Overview, Calix virus Disease 2019 (COVID-19): Prevention, Coronavirus Disease 2019 (COVID-19): Caring for Yourself or Others Discharge Orders/Prescriptions Prescriptions: New Eliquis 2.5 mg tablet 2.5 mg PO BID Qty: 28 RF: 0 dexamethasone [Decadron] 6 mg tablet 6 mg PO DAILY Qty: 8 RF: 0 Continued multivitamin Tablet 1 tab PO DAILY RF: 0 montelukast 10 mg tablet 10 mg PO QHS RF: 0 furosemide 20 mg tablet 20 mg PO DAILY PRN (Reason: swelling) RF: 0 albuterol sulfate 90 mcg/actuation HFA aerosol inhaler 2 puff INHALATION Q6H PRN PRN (Reason: Dyspnea) RF: 0 Discontinued prednisone 10 mg tablet 30 mg PO DAILY RF: 0 Referrals / Follow Up: Xavier Saucedo DO [STAFF PHYSICIAN] - Within 2 Weeks Michelle Velasco, FINANCIAL SALES PROFESSIONAL-C [Primary Care Provider] - Within 2 Weeks Disposition Disposition (needs filled in before D/C Order can be placed): Home, Self Care Charges/Coding Visit Charges Inpatient E&M: 13221 Disch Hosp
--- NOTE | 2021-01-10 11:56 | NURSING ---
pt placed on room air to obtain quantifications for home oxygen.
--- NOTE | 2021-01-10 13:52 | CASEMGMT ---
RN ROBBIE updated that patient will need home oxygen at discharge. Script [facility]. TO[facility]A AVALOS faxed script and arranged for portable tank to be delivered to patient's room prior to discharge.
--- NOTE | 2021-01-11 15:39 | CASEMGMT ---
Pt RN CM Discharge COVID Follow Up Phone Call: NAOMI: 2 Strata:1 Call Date: 01/11/21 Discharge Date: 01/10/21 Time of Call: 1536 Duration:3 min Admitting Dx:JOSY 19 RN CM completed follow up phone call after recent hospitalization. Pt states he is doing well. He states he is using his O2 with exertion but goes as far as he can without it first. Encouraged to use with any exertion. Pt states he was able to belt picker his rx without difficulty. He was unable to get into until February. He has an appt with his NUTRITIONAL CHEMIST next Thursday. Pt denies any questions regarding dc instructions or medications. Pt phone number did not go through. Was able to reach pt on 's phone.
== END 2021-01-10 16:07 | disposition home or self-care (01) | DRG 177 ==
PROVIDERS: Internal Medicine Critical Care Medicine; Admitting Provider Family Medicine; PCP Nurse Practitioner Family; Visit Provider Student in an Organized Health Care Education/Training Program
DX: U07.1 COVID-19 (principal); J96.01 Acute respiratory failure with hypoxia; Z68.43 Body mass index [BMI] 50.0-59.9, adult; R79.1 Abnormal coagulation profile; E66.01 Morbid (severe) obesity due to excess calories
CPT/HCPCS: 36415; 80048; 80053; 82550; 83605; 83615; 83735; 83880; 84145; 84484; 85025; 85379; 85384; 85610; 86140; 94762

== ENCOUNTER → 2021-02-27 12:15 | Outpatient (CLI) | payer OTHER, SELFPAY ==
[2021-02-27 12:30] VITALS: PULSE 108; PULSE 114; PULSE 116; PULSE 117; PULSE 118; PULSE 87; PULSE 92; O2SAT 92; O2SAT 93; O2SAT 94; O2SAT 97; O2SAT 98
--- NOTE | 2021-02-27 12:46 | CPS ---
Patient wears 2L PRN currently at home. Patient's sat's were 98% on RA, therefore test was initiated without oxygen. Patient's sat's remained above 90% for remainder of the test on RA.
--- NOTE | 2021-02-27 14:50 | PCM.PSN.6M ---
PSN 6 Minute Walk Test 6 Minute Walk Test 6 Minute Walk Test: 6 Minute Walk Test PSN:6-Minute Walk Test Start: 02/27/21 12:43 Freq: Status: Active Protocol: [id number] Document 02/27/21 12:30 HJ (Rec: 02/27/21 12:48 HJ [id number]) 6 Minute Walk Test Date Performed 02/27/21 Time Performed 12:30 Height 6 ft 4 in Weight: 181.437 kg Weight in Pounds 400.[address]: Shira Troncoso LOCOMOTIVE DRIVER FIO2 (% Oxygen) 21 Assistive device used: None Pre-test Oxygen Delivery Method Room Air Pulse Ox (%) 98 Pulse Rate (60-100 beats/min) 87 Dyspnea Janice Scale (0-10) 0 Exertion Janice Scale (6-20) 6 1st minute Oxygen Delivery Method Room Air Pulse Ox (%) 94 Pulse Rate (60-100 beats/min) 108 H 2nd minute Oxygen Delivery Method Room Air Pulse Ox (%) 93 Pulse Rate (60-100 beats/min) 114 H 3rd minute Oxygen Delivery Method Room Air Pulse Ox (%) 93 Pulse Rate (60-100 beats/min) 116 H 4th minute Oxygen Delivery Method Room Air Pulse Ox (%) 93 Pulse Rate (60-100 beats/min) 117 H 5th minute Oxygen Delivery Method Room Air Pulse Ox (%) 92 Pulse Rate (60-100 beats/min) 118 H 6th minute Oxygen Delivery Method Room Air Pulse Ox (%) 93 Pulse Rate (60-100 beats/min) 118 H Post-test Oxygen Delivery Method Room Air Pulse Ox (%) 97 Pulse Rate (60-100 beats/min) 92 Dyspnea Janice Scale (0-10) 1 Exertion Janice Scale (6-20) 13 Full Laps Walked 16 Partial Lap, Number of Tiles Walked 32 Total Distance Walked (ft) 976 02/27/21 12:46 Cardiopulmonary Services by Renee Sims Patient wears 2L PRN currently at home. Patient's sat's were 98% on RA, therefore test was initiated without oxygen. Patient's sat's remained above 90% for remainder of the test on RA. Initialized on 02/27/21 12:46 - END OF NOTE Interpretation Interpretation: The patient was able to ambulate 976 feet over the course of 6 minutes on room air with no assistive devices or breaks. Patient was noted to be 98% at rest, but did desaturate as low as 92% with exertion. Patient's peak heart rate was 118 bpm. These findings are consistent with a cardiopulmonary limitation exercise tolerance. Recommendations Recommendations: No supplemental oxygen is indicated at this time. However, patient will need to be followed closely given level of desaturation.
== END ==
PROVIDERS: PCP Nurse Practitioner Family; Referring Provider Nurse Practitioner Acute Care; Visit Provider Nurse Practitioner Acute Care
DX: U07.1 COVID-19 (principal)
CPT/HCPCS: 94618